=== PATIENT | male | born 1985 | race Caucasian/White ===

== ENCOUNTER 2023-02-04 17:06 | Emergency (ER) | payer SELFPAY ==
--- NOTE | 2023-02-04 17:15 | PC.NURSE ---
,pm out to lobby to check on pt. Dressing applied to laceration, states no active bleeding noted, small amount of swelling noted.
[2023-02-04 18:00] VITALS: BP 142/52; PULSE 69; RESP 19; TEMP 36.3; O2SAT 100; BMI 21.7
[2023-02-04 18:55] VITALS: BMI 21.7
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
[2023-02-04 20:06] VITALS: BP 130/87; PULSE 84; RESP 17; TEMP 36.8; O2SAT 98
== END 2023-02-04 20:06 | disposition home or self-care (01) ==
PROVIDERS: Emergency Provider Emergency Medicine
DX: S81.011A Laceration without foreign body, right knee, initial encounter (principal); F17.200 Nicotine dependence, unspecified, uncomplicated; W26.0XXA Contact with knife, initial encounter
CPT/HCPCS: 73552; 99284

== ENCOUNTER 2024-04-09 00:43 | Emergency (ER) | payer SELFPAY ==
[2024-04-09 00:44] VITALS: BP 142/77; PULSE 77; RESP 18; TEMP 36.8; O2SAT 97; BMI 23.7
[2024-04-09] MEDS: TETRACAINE/BENZOCAINE/BUTAMBEN 56 GM SPRAY TP (00:55)
[2024-04-09] MEDS: LIDOCAINE 2% VISCOUS SOL 15ML UDC 15 ML PO (00:55)
[2024-04-09] MEDS: AMOXICILLIN/CLAVULANATE POTASSIUM 875/125MG TABLET 1 EACH PO (00:56)
[2024-04-09] MEDS: KETOROLAC 30MG/ML VIAL 30 MG IM (00:56)
--- NOTE | 2024-04-09 00:56 | ED_ITS ---
Discharge Plan Disposition Patient Disposition: Home, Self-Care Condition: Good Prescriptions Prescriptions: New amoxicillin-pot clavulanate 875-125 mg tablet 1 tab PO BID Qty: 20 0RF No Action cefadroxil 500 mg capsule 500 mg PO BID 5 Days Qty: 10 0RF Referrals Follow up/Referrals: Provider,Referral, [Primary Care Provider] - See instructions Activity Restrictions/Add. Instructions Additional Instructions/Restrictions: You were evaluated in the ER and are appropriate for discharge at this time. Take Tylenol and ibuprofen if needed for pain, do not exceed the recommended dose on the bottle. Drink plenty of water and eat a small snack each time you take these medications to avoid side effects. Use the provided dental balls as directed, apply them for 1 hour, then remove for 1 hour. Do not eat, sleep, or drink with these in place. Take the prescribed antibiotics as directed, do not skip doses, do not stop taking them early. Follow-up with a dentist immediately, if you are able to access them, the dental urgent care information is below, otherwise follow up locally. Return to the ER with new, worsening, or otherwise concerning symptoms. dental urgent care: Open 7:45 AM, first come, first served. Be there when they open in order to be seen. [address] [place], [place] [id number] Phone?[phone] Clinical Impressions Clinical Impression: Pain, dental, Dental infection Print Language Print Language: [place] Discharge ED Provider: Pramod Adamson General Adult HPI General Stated complaint: toothache Time Seen by Provider: 04/09/24 00:46 History of Present Illness HPI narrative: Otherwise healthy 38-year-old male presents to the ER with right lower tooth pain. Patient states his pain started today and has progressively worsened despite taking Tylenol. He reports he feels like the right side of his face is swollen. He does not any difficulty breathing or swallowing. Patient reports he hopes to see a dentist tomorrow. Aside from Tylenol he has not taken any other medications for his pain. He denies fevers, chills, headache, dizziness, cough, sore throat, chest pain, shortness of breath, nausea, vomiting, diarrhea, or any other associated symptoms. Related Data Previous Rx's ?Medication ?Instructions ?Recorded cefadroxil 500 mg capsule 500 mg PO BID 5 days #10 caps 02/04/23 amoxicillin 875 mg-potassium 1 tab PO BID #20 tabs 04/09/24 clavulanate 125 mg tablet Allergies Allergy/AdvReac Type Severity Reaction Status Date / Time No Known Allergies Allergy Verified 02/04/23 18:56 [facility] Disclaimer: The information contained in this section may have been updated after the patient was seen, as this information can be updated by other users. Social History (Updated 02/04/23 @ 20:00 by Demetrius Andrade MD) Smoking Status: Current every day smoker alcohol intake: never current occupational status: employed Travel in the last 8 weeks: None ROS Obtained: Yes Systems reviewed as appropriate & no additional complaints except as documented ROS per HPI Physical Exam General General appearance: alert and in no apparent distress Head Head exam: atraumatic and normocephalic Eye Eye exam: Present PERRL and EOMI ENT ENT exam: Present mucous membranes moist and other (Poor dentition, multiple dental caries, right mandibular molars number 30,31 are not fractured but have caries and obvious gingival inflammation with tenderness, no abscess, no sublingual or submandibular swelling) Neck Neck exam: Present normal inspection and full ROM; Absent lymphadenopathy Chest Chest inspection: Present symmetric chest wall rise Respiratory Respiratory exam: Absent respiratory distress or stridor Cardiovascular Cardiovascular exam: Present regular rate and normal rhythm Abdominal Exam Abdominal exam: Present soft Extremities Exam Extremities exam: Present full ROM Neurological Exam Neurological exam: Present alert and oriented X3; Absent motor sensory deficit Psychiatric Psychiatric exam: Present normal affect and normal mood Skin Skin exam: Present warm and dry Medical Decision Making Medical Records Medical records reviewed: Yes I reviewed the patient's medical records. Screening: Per USPSTF and CDC recommendations, given the prevalence of disease in our region, it is our hospital?s policy to screen for HIV and viral Hepatitis for all patients aged 18 and over and those with ongoing risk factors. MR Comment: Previous evaluation in the ER in January 2023 for laceration on the right leg. No other records in our system Kevon Inquiry Pt receiving controlled substance: No Orders (Tests/Meds): ED MEDICATIONS Generic Name Dose Route Start Last Admin Trade Name Freq PRN Reason Stop Dose Admin Amoxicillin/Clavulanate Potassium 1 each 04/09/24 00:51 Amoxicillin/Clavulanate Potassium 875/125mg Tablet PO 04/09/24 00:52 ONCE ONE Benzocaine/Butamben/Tetracaine HCl 1 gm 04/09/24 00:51 04/09/24 00:55 Tetracaine/Benzocaine/Butamben 56 Gm Beaman TP 04/09/24 00:52 1 gm ONCE ONE Administration Ketorolac Tromethamine 30 mg 04/09/24 00:51 Ketorolac 30mg/Ml Vial IM 04/09/24 00:52 ONCE ONE Lidocaine HCl 15 ml 04/09/24 00:51 04/09/24 00:55 Lidocaine 2% Viscous Aleyda 15ml Udc PO 04/09/24 00:52 15 ml ONCE ONE Administration Medical Decision Narrative: In summary, this otherwise healthy 38-year-old male presents to the emergency department today with right mandibular dental pain. On initial evaluation patient is hemodynamically stable, afebrile, patient does not have any facial swelling or trismus but does have erythematous gingiva around teeth 30 and 30 one of the right mandibular molars, no abscess, no findings of Rodrigue's angina though this was considered on my differential. Differential diagnosis includes but is not limited to dental infection, dental caries, fractured tooth which was not appreciated, also considered Rodrigue's angina but do not appreciate evidence of it, no findings of abscess. I do not believe labs or imaging are indicated at this time. I recommended dental block to the patient, however he refused this after discussing risks and benefits. Dental ball was applied to the area of maximal pain, he was also provided dental balls for home management. Toradol was administered as well as Augmentin for treatment of dental infection. I prescribed Augmentin and encouraged him to take [id number] medications including Tylenol, ibuprofen and use the dental balls as directed as well as follow-up with dentistry as soon as possible. He states he is going to go to the dental clinic in the morning. He was given strict return precautions for the ER. Patient discharged in stable condition. Critical Care Critical Care Time Critical Care Time: No
[2024-04-09 01:19] VITALS: BP 121/77; PULSE 76; RESP 18; TEMP 36.8; O2SAT 97
== END 2024-04-09 01:15 | disposition home or self-care (01) ==
PROVIDERS: Emergency Provider Emergency Medicine
DX: K04.7 Periapical abscess without sinus (principal); K08.89 Other specified disorders of teeth and supporting structures
CPT/HCPCS: 96372; 99283; J1885